=== PATIENT | female | born 2000 | race Hispanic/Latino ===

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

== ENCOUNTER 2024-08-30 02:14 | Emergency (ER) | payer BC, OTHER ==
[2024-08-30] MEDS ORDERED: Tranexamic Acid 1,000 MG/10 ML VIAL ONE ×2 (02:53→04:13)
== END 2024-08-30 06:14 | disposition home or self-care (01) ==
LOC: ERS 02:14
DX: K91.840 Postprocedural hemorrhage of a digestive system organ or structure following a digestive system procedure (principal); Z55.6 Problems related to health literacy
CPT/HCPCS: 99283